=== PATIENT | female | born 1995 | race Caucasian/White ===

== ENCOUNTER 2019-07-10 21:36 | Emergency (ER) | payer OTHER ==
[~2019-07-10] VITALS: Ht 177.8 cm; Wt 124.7 kg
[2019-07-10] MEDS ORDERED: NOHOMEMEDICATIONS (21:49)
[2019-07-10 22:08] VITALS: BP 157/99
== END 2019-07-10 22:09 | disposition home or self-care (01) ==
LOC: M.ERS 21:36
DX: S90.562A Insect bite (nonvenomous), left ankle, initial encounter (principal); S90.561A Insect bite (nonvenomous), right ankle, initial encounter; J45.909 Unspecified asthma, uncomplicated; Z88.1 Allergy status to other antibiotic agents; W57.XXXA Bitten or stung by nonvenomous insect and other nonvenomous arthropods, initial encounter; Y93.89 Activity, other specified; Y92.89 Other specified places as the place of occurrence of the external cause; Y99.8 Other external cause status

== ENCOUNTER 2020-12-09 18:54 | Emergency (ER) | payer OTHER ==
[~2020-12-09] VITALS: Ht 177.8 cm; Wt 117.9 kg
[~2020-12-09 18:54] MED LIST: NOHOMEMEDICATIONS
[2020-12-09 20:58] LABS: URINE BILIRUBIN NEGATIVE (Negative); URINE BLOOD NEGATIVE (Negative); URINE CLARITY CLEAR; URINE COLOR YELLOW; URINE GLUCOSE-RANDOM NEGATIVE (Negative); URINE KETONES NEGATIVE (Negative); URINE LEUKOCYTES-REFLEX TRACE (Negative); URINE NITRITE-REFLEX NEGATIVE (Negative); URINE PROTEIN NEGATIVE (Negative); URINE SPECIFIC GRAVITY 1.025 (1.005-1.030); URINE UROBILINOGEN 0.2 E.U./dl (0.2-1.0)
[2020-12-09 21:02] LABS: ABSOLUTE BASOPHILS 0.1 thou/uL (0.0-0.2); ABSOLUTE EOSINOPHILS 0.2 thou/uL (0.0-0.7); ABSOLUTE LYMPHOCYTES 3.4 thou/uL (0.8-5.3); ABSOLUTE MONOCYTES 0.7 thou/uL (0.0-1.2); ABSOLUTE NEUTROPHILS 6.5 thou/uL (1.6-8.1); BASOPHILS 0.6 %; EOSINOPHILS 1.8 %; HEMATOCRIT 43.8 % (37.0-47.0); HEMOGLOBIN 14.8 gm/dL (12.0-15.0); LYMPHOCYTES 31.4 %; MCH 29.9 pg (26.0-34.0); MCHC 33.8 g/dL (28.0-37.0); MCV 88.5 fL (80.0-100.0); MONOCYTES 6.6 %; MPV 7.2 fl. (7.2-11.1); NUCLEATED RBCS 0 /100WBC; PLATELET COUNT* 333 thou/uL (150-400); POLYS 59.6 %; RBC 4.95 mil/uL (4.20-5.00); RDW-CV 13.5 % (10.5-14.5); WBC 10.9 thou/uL (4.0-11.0)
[2020-12-09 21:09] LABS: MUCUS 0-3 Light strn/LPF (None Seen); SQUAMOUS >10 Many /LPF (0-3)
[2020-12-09 21:10] LABS: BACTERIA-REFLEX 1-9 Few /HPF (None Seen); CASTS None Seen /LPF (None Seen); CRYSTALS None Seen /LPF (None Seen); URINE RBC None Seen /HPF (0-2); URINE WBC-REFLEX 0-5 Rare /HPF (0-5)
[2020-12-09 21:12] LABS: CALCIUM 9.5 mg/dL (8.5-10.1); CREATININE 0.7 mg/dL (0.6-1.3); POTASSIUM 3.5 mmol/L (3.5-5.1)
[2020-12-09 21:17] LABS: ALBUMIN 4.1 g/dL (3.4-5.0); TOTAL BILIRUBIN 0.4 mg/dL (<0.1-1.0); TOTAL PROTEIN 7.6 g/dL (6.4-8.2)
[2020-12-09] MEDS ORDERED: REGLAN 10 MG TA10 MG PO (22:08)
[2020-12-09] MEDS ORDERED: MOTION RELIEF25 MG PO (22:08)
[2020-12-09 22:25] VITALS: BP 142/89
--- NOTE | 2020-12-10 13:35 | EKG ---
[place] [address] ELECTROCARDIOGRAM REPORT Name: JOSLYN COATES Room: [facility]#: [id number] Admission: 12/09/20 Attend Phys: Discharge: 12/09/20 Date of : [birth year] Date of Service: 12/09/202101 Report #: [id number] THIS REPORT FOR: //name// [facility] ED Test Date: 2020-12-09 Test Time: 21:02:14 Pat Name: JOSLYN COATES Department: Room: Gender: F Relief Man: : 1995 Requested By: Amadou Arias Order Number: [id number] MD: Eric Rios Measurements Intervals [place] Rate: 78 P: 68 [place]: 128 QRS: 59 QRSD: 85 T: 44 QT: 386 QTc: 440 Interpretive Statements Sinus rhythm Atrial premature complex No previous ECG available for comparison Electronically Signed On 12-10-2020 13:35:01 [employer] MACHINE OPERATOR by Eric Rios [email or web address] <ELECTRONICALLY SIGNED> By: Eric Rios MD, [facility] 12/10/20 1335 01 01 Eric Rios MD, FACC /EPI
== END 2020-12-09 22:25 | disposition home or self-care (01) ==
LOC: M.ERS 18:54
PROVIDERS: Nurse Practitioner Family
DX: R42 Dizziness and giddiness (principal); J45.909 Unspecified asthma, uncomplicated; Z88.8 Allergy status to other drugs, medicaments and biological substances; Z20.828 Contact with and (suspected) exposure to other viral communicable diseases